=== PATIENT | male | born 1975 | race Caucasian/White ===

== ENCOUNTER 2024-04-02 09:54 | Emergency (ER) | payer BC | END 2024-04-02 10:57 | disposition home or self-care (01) | LOC: LL.ED 09:54 | DX: I10 Essential (primary) hypertension (principal); F17.210 Nicotine dependence, cigarettes, uncomplicated; Z79.899 Other long term (current) drug therapy | CPT/HCPCS: 99283; 99284 ==

== ENCOUNTER 2024-06-12 19:30 | Emergency (ER) | payer BC ==
[2024-06-12] MEDS: Erythromycin Base 0.5% Ophth Oint 3.5 GM Tube EYEBOTH ONE (19:43)
[2024-06-12] MEDS: Tetracaine HCl/PF 0.5% 4 ML Bottle EYELF ONE (20:59)
[2024-06-12] MEDS: Acetaminophen/HYDROcodone 325-10 MG Tab PO ONE (21:09)
[2024-06-12] MEDS: prednisoLONE Acetate 1% Ophth Susp 5 ML Bottle EYELF ONE (21:09)
[2024-06-12] MEDS: Ketorolac 30 MG/ML SDV IM ONE (21:10)
[2024-06-12] MEDS: predniSONE 20 MG Tab PO ONE (21:10)
[2024-06-12] MEDS: Acetaminophen 325 MG Tab PO ONE (21:11)
[2024-06-12] MEDS: cloNIDine 0.1 MG Tab PO ONE (21:21)
[2024-06-12] MEDS: Take Home: Acetaminophen/HYDROcodone 325-5 MG, 5 Tab Pack PO ONE (21:40)
== END 2024-06-12 21:41 | disposition home or self-care (01) ==
LOC: LL.ED 19:30
DX: H20.00 Unspecified acute and subacute iridocyclitis (principal); I10 Essential (primary) hypertension; Z79.899 Other long term (current) drug therapy
CPT/HCPCS: 96372; 99283; A9270-GY; J1885; J3490; J7512